=== PATIENT | female | born 1955 | race Caucasian/White ===

== ENCOUNTER 2021-04-15 16:50 | Emergency (ER) | payer SELFPAY ==
[~2021-04-15] VITALS: Ht 167.6 cm; Wt 63.5 kg
--- NOTE | 2021-04-15 17:13 | NUR ---
TO ER BED 14 AWAITING MD BAXTER
--- NOTE | 2021-04-15 17:18 | NUR ---
PT CAME TO ER C/O ELEVATED BP X 1 WEEK. IT WAS 250/110 2 HRS AGO. PT ADMITS HEADACHE AND FATIGUE, DENIES N/V. A&OX4. AMBULATORY. PULSES 2+ BILATERALLY. SKIN IS WARM AND DRY.
[2021-04-15 17:56] LABS: RED BLOOD CELL COUNT(AUTO) 4.94 MIL/uL (4.0-5.2)
[2021-04-15 17:59] LABS: BASOPHILS # (AUTO) 0.1 K/uL (0.0-0.2); BASOPHILS % (AUTO) 1.4 % (0.0-2.0); EOSINOPHILS % (AUTO) 3.5 % (0.0-6.0); HEMATOCRIT 44 % (33-45); HEMOGLOBIN 14.8 g/dL (11.5-14.8); LYMPHOCYTES % (AUTO) 33.6 % (20.0-44.0); MEAN CORPUSCULAR HGB CONC 33 g/dl (31.0-36.0); MEAN CORPUSCULAR VOLUME 90 fL (82-100); MONOCYTES # (AUTO) 0.7 K/uL (0.1-1.30); MONOCYTES % (AUTO) 11.5 % (2.0-12.0); NEUTROPHILS # (AUTO) 2.9 K/uL (1.8-8.9); PLATELET COUNT (AUTO) 201 K/uL (150-450); WHITE BLOOD COUNT (AUTO) 5.9 K/uL (4.3-11.0)
[2021-04-15 18:06] LABS: CALCIUM, SERUM 9.1 mg/dL (8.5-10.1); CARBON DIOXIDE 26 mmol/L (21-32); CHLORIDE 104 mmol/L (98-107); CREATININE 0.6 mg/dL (0.6-1.3); GLUCOSE 109 mg/dL (74-106); SODIUM SERUM 139 mmol/L (136-145); UREA NITROGEN, BLOOD 13 mg/dL (7-18)
--- NOTE | 2021-04-15 18:10 | NUR ---
CONTINUING TO MONITOR PT. BP 148/83
[2021-04-15] MEDS ORDERED: AMLO-212 PO (18:22)
[2021-04-15 18:37] VITALS: BP 132/84
== END 2021-04-15 18:38 | disposition home or self-care (01) ==
LOC: ER 16:50
DX: I10 Essential (primary) hypertension (principal); F17.200 Nicotine dependence, unspecified, uncomplicated; Z60.2 Problems related to living alone; Z79.899 Other long term (current) drug therapy
CPT/HCPCS: 36415; 80048-TC; 84484-TC; 85025-TC